=== PATIENT | male | born 1950 | race Caucasian/White ===

== ENCOUNTER → 2016-12-10 | Day surgery (SDC) | payer MEDICARE ==
[~2016-12-10] MED LIST: ADVIL COLD & SI1 TA1; ASPIRIN81 M2 PO; CHANTIX; COZAAR100 MG PO; CYMBALTA PO; EC-NAPROSYN500 MG; FUROSEMIDE40 MG PO; IBUPROFEN; K-DUR10 MEQ PO; LANSOPRAZOLE30 M2 PO; LISINOPRIL30 MG PO; LUNESTA PO; NAPROXEN; NEXIUM PO; PANTOPRAZOLE SO40 MG PO; PREVACID PO; TYLENOL #3 PO; ZOLOFT100 MG PO
--- NOTE | ~2016-12-10 | OR ---
Unit #: [id number] #: [id number] Patient: ESTHER STAPLETON [id number] [address] [address] [id number] O MR#: [id number] NAME: ESTHER STAPLETON. ROOM: Date of Procedure: 12/10/2016 Admission Date: 12/10/2016 Surgeon: Kory Gonzalez M.D. : 1950 Attending Physician: Kory Gonzalez M.D. Primary Care Physician: Dominga Carrera A.P.R.N. OPERATIVE REPORT PREOPERATIVE DIAGNOSES Presence of blood in the stool. In addition, the patient has family history of colon cancer and has come for screening colonoscopy. PROCEDURES PERFORMED Upper gastrointestinal endoscopy as well as colonoscopy with polypectomy and colonoscopy with internal hemorrhoid band ligation. POSTOPERATIVE DIAGNOSES For upper endoscopy: 1. The patient has small hiatus hernia and grade 2 distal erosive esophagitis. For colonoscopy: 1. Single sessile polyp in the rectum, removed using snare polypectomy. This about 5 to 6 mm in size. 2. Medium-sized internal hemorrhoids. Two of these were treated using rubber band ligation. 3. Rest of the examination up to cecum was normal. The quality of the prep was good. RECOMMENDATIONS 1. The patient should avoid straining of the stool for the next couple of days. He was given p.o. hydrocodone/acetaminophen combination 5/325, total of 10 tablets were given to be used in case of any rectal pain. Also, used Dulcolax on a as needed basis in case of any constipation. 2. Follow up in the office in 4 to 6 months' time. SEDATION USED MAC. DESCRIPTION OF PROCEDURE Following detailed explanation of potential risks and complications of an upper endoscopy and a colonoscopy, namely perforation, bleeding, and complications related to sedation, the patient was brought to GI lab and laid in the left lateral decubitus position. Lubricated tip of the Olympus video upper endoscope was passed through the bite block into the proximal esophagus under direct vision. The entire esophageal mucosa was examined. The patient was noted to have distal erosive grade 1 to 2 erosive esophagitis. In addition, a small hiatus hernia was noted. The scope was then advanced into the gastric cavity. The latter was insufflated. Mucosa of the fundus, body, and antrum examined and appeared unremarkable. Pylorus was intubated with visualization of normal duodenal Unit #: [id number] #: [id number] Patient: ESTHER STAPLETON bulb and second and third part of the duodenum. Upon withdrawal and retroflexion, incisura, cardia, and greater curve examined and no additional findings noted. The scope was then withdrawn in the distal esophagus. The entire esophageal mucosa was examined all the way up to pharynx, no additional findings noted. The examination table was then turned by 180 degrees and the patient was positioned for a colonoscopy. A digital rectal examination was performed, which was normal. Lubricated tip of the Olympus video colonoscope was inserted through the anus and advanced under direct vision. The scope was advanced and passed up to sigmoid into descending colon. No diverticula noticed in this area. The scope tip was then navigated all the way up to cecum with visualization of the ileocecal valve and the appendiceal orifice. Preparation was excellent with good visualization and photodocumentation was obtained. Last several inches of terminal ileum also visualized after intubation of the ileocecal valve and appeared normal. Successive segments of the colonic mucosa were examined upon withdrawal and appeared unremarkable. There being no polyps, mass lesions, or AVMs. Other than a single sessile polyp in the rectum, this was about 5 to 6 mm in size. It was removed using snare polypectomy. The polyp was retrieved and sent for histology. No additional polyps noted. The patient was found to have medium-sized internal hemorrhoids seen at the anal verge, both on antegrade examination and retroflexion. The scope was then withdrawn. A rapid shooter band ligator assembly was mounted on the scope tip. The patient was reintubated in the retroflexed position. Two of the internal hemorrhoids were then treated using rubber band ligation. The scope was then gently withdrawn. The patient returned to the recovery area. He tolerated the procedure without any postprocedure complications. Dictated by... Olesya Lewis TD: 12/11/2016 07:51 JOB #: [id number] OPERATIVE REPORT Page 1 of 1 X Kory Gonzalez MD X PROCEDURE OPERATIVE NOTE
== END | disposition home or self-care (01) ==
LOC: COPS 08:30
DX: K29.80 Duodenitis without bleeding (principal); K62.1 Rectal polyp; K20.8 Other esophagitis; K64.8 Other hemorrhoids; K44.9 Diaphragmatic hernia without obstruction or gangrene; D64.9 Anemia, unspecified; K21.9 Gastro-esophageal reflux disease without esophagitis; N40.0 Benign prostatic hyperplasia without lower urinary tract symptoms; Z87.442 Personal history of urinary calculi; I48.91 Unspecified atrial fibrillation
CPT/HCPCS: 87077; 88305; J2250